=== PATIENT | male | born 1975 ===

== ENCOUNTER 2018-06-10 07:27 | Emergency (ER) | payer SELFPAY ==
[~2018-06-10] VITALS: Ht 167.6 cm; Wt 65.8 kg
--- OUTSIDE RECORDS SUMMARY | 2018-06-10 07:32 | XMS REPORT ---
Author ANUEL Farris [facility] eClinicalWorks Address Unknown Phone Unavailable Care Team Providers Care Golf Coach Name Role Phone ANUEL GRULLON Unavailable Allergies No Known Allergies Problems Problem Type Condition Code Onset Dates Condition Status Problem Unspecified disorder of skin and subcutaneous tissue 709.9 Active Medications Medication Code System Code Instructions Start Date End Date Status Dosage Permethrin [facility] [address]-17 5 % Externally August 20, 2015 as directed Results No Known Results Summary Purpose eClinicalWorks Submission
--- OUTSIDE RECORDS SUMMARY | 2018-06-10 07:32 | XMS REPORT ---
Author Author MARIS SPRINGER Organization [facility] Address [address] [place] [address] Care Team Providers Care Car Rental Agent Name Role Phone MARIS SPRINGER Unavailable PROBLEMS Type Condition ICD9-CM Code [id number] Code Onset Dates Condition Status SNOMED Code Problem Unspecified disorder of skin and subcutaneous tissue 709.9 Active [id number] ALLERGIES No Information ENCOUNTERS Encounter Location Date Diagnosis [place] [id number] [address] Jul, Scabies exposure Z20.89 [facility] [address] [address] Jun, Dysuria R30.0 ; Acute cystitis without hematuria N30.00 and Dizziness R42 [facility] [address] [address] Feb, Abrasion of scalp, initial encounter S00.01XA and Concussion without loss of consciousness, initial encounter S06.0X0A [facility] [address] [place], [place] [id number] [place] [address] Jul, Skin disorder L98.9 ; Encounter to establish care Z76.89 and Screening for cholesterol level Z13.220 [place] [address] [address] Jul, [address] [address] August, [place] [address] [address] Oct, [place] [address] [address] Oct, [facility] [address] [id number] [place] [address] Oct, Unspecified disorder of skin and subcutaneous tissue 709.9 [facility] [address] [id number] [place] [address] Jul, [facility] [address] [id number] [place] [address] Jul, [facility] [address] [id number] [place] [address] Oct, [facility] [address] [id number] [place] [address] Oct, [facility] [address] [id number] [place] [address] Oct, [facility] [address] [facility] [id number] [place] [address] Oct, [facility] [address] [facility] [id number] [place] [address] Oct, [facility] [address] [facility] [id number] [place] [address] August, [facility] [address] [facility] [id number] [place] [address] August, [facility] [address] [id number] [place] [address] August, [facility] [address] [id number] [place] [address] August, [facility] [address] [id number] [place] [address] 1551 August, [facility] [address] [facility] [id number] [place] [address] August, [facility] [address] [facility] [id number] [place] [address] August, [facility] [address] [id number] [place] [address] Nov, [facility] [address] [id number] [place] [address]- [address] Sep, [facility] [place] [facility] [address] [id number] [place] [address] 5[address] Apr, [facility] [id number] [place] [address], [place] [address] Mar, [facility] [address] [id number] [place] [address] Mar, [facility] [address] [id number] [place] [address]- [address] Feb, [facility] [address] [id number] [place] [address] 67[address] Feb, [facility] [address] [id number] [place] [address]- [address] Feb, [facility] [address] [id number] [place] [address] Dec, [facility] [address] [id number] [place] [address] 33[address] Oct, [facility] [address] [id number] [place] [address] 6[address] August, [facility] [address] [id number] [address] Mar, [facility] [place] [facility] [address] [id number] [place] [address] 58[address] Mar, [facility] [place] [facility] [address] [id number] [place] [address] 132[address] Jan, [facility] [place] [facility] [address] [id number] [place] [address] 2[address] Jan, [facility] [place] [facility] [address] [id number] [place] [address] Dec, IMMUNIZATIONS No Known Immunizations SOCIAL HISTORY Never Assessed REASON FOR VISIT scabies exposure PLAN OF CARE VITAL SIGNS MEDICATIONS Medication Instructions Dosage Frequency Start Date End Date Duration Status Elimite 5 % Externally once apply to entire body from neck down, leave on x 8 -10 hours, then wash off Jul, 1 dose Active RESULTS No Results PROCEDURES No Known procedures INSTRUCTIONS MEDICATIONS ADMINISTERED No Known Medications MEDICAL (GENERAL) HISTORY Type Description Date Medical History skin disorder
--- OUTSIDE RECORDS SUMMARY | 2018-06-10 07:32 | XMS REPORT | Continuity of Care Document ---
Author Author [facility] Organization [facility] Address Unknown Phone Unavailable Care Team Providers Care Workforce Development Vice President Name Role Phone [facility] Insurance Providers Payer Name Policy Number Subscriber Name Relationship Unknown Bertin Kaufman Advance Directives Directive Response Recorded Date Advance Directives N 12/15/12 3:35pm Problems No Known Problems or Medical conditions. Social History History Response Recorded Date/Time Alcohol Use Denies Use 12/15/12 3:35pm Recreational Drug Use N 12/15/12 3:35pm Allergies, Adverse Reactions, Alerts Allergen Type Severity Reaction Last Updated No Known Drug Allergies 12/15/12 Medications No known medications Response Recorded Date/Time Status not known Unknown Results No Known Relevant Diagnostic Tests, Laboratory Data and/or Discharge Summary. Encounters Encounter Location Date/Time Departed Emergency Room [facility] IS 3:29pm
--- OUTSIDE RECORDS SUMMARY | 2018-06-10 07:32 | XMS REPORT ---
Author Author MAHAMED LOYOLA [facility] IN [facility] Address [address] [place] [address] Care Team Providers Care Industrial Commercial Groundskeeper Name Role Phone MAHAMED LOYOLA Unavailable PROBLEMS Type Condition ICD9-CM Code PHI54-RS Code Onset Dates Condition Status SNOMED Code Problem Unspecified disorder of skin and subcutaneous tissue 709.9 Active [id number] ALLERGIES No Known Allergies ENCOUNTERS Encounter Location Date Diagnosis [place] [address] [address] Sep, [place] [address] [address] Jul, Scabies exposure Z20.89 [facility] IN [facility] [address] [address] Jun, Dysuria R30.0 ; Acute cystitis without hematuria N30.00 and Dizziness R42 [facility] IN [facility] [address] [address] Feb, Abrasion of scalp, initial encounter S00.01XA and Concussion without loss of consciousness, initial encounter S06.0X0A [place] [address] [address] [place] [id number] [place] [address] Jul, Skin disorder L98.9 ; Encounter to establish care Z76.89 and Screening for cholesterol level Z13.220 [place] [address] [address] Jul, [place] [address] [address] August, [place] [address] [address] Oct, [facility] [address] [id number] [place] [address] Oct, [facility] [address] [id number] [place] [address] Oct, Unspecified disorder of skin and subcutaneous tissue 709.9 [facility] [address] [id number] [place] [address] Jul, [facility] [address] [id number] [place] [address] 3[address] Jul, [facility] [address] [id number] [place] [address]- 3548 Oct, [facility] [address] [id number] [place] [address] Oct, [facility] [address] [id number] [place] [address] Oct, [facility] [address] [id number] [place] [address] Oct, [facility] [address] [id number] [place] [address]- 3990 Oct, [facility] [address] [facility] [id number] [place] [address] August, [facility] [address] [id number] [place] [address] August, [facility] [address] [id number] [place] [address] August, [facility] [address] [id number] [place] [address]- 7[address] August, [facility] [address] [id number] [place] [address]- 0[address] August, [facility] [address] [id number] [place] [address]- 2055 August, [facility] [address] [id number] [place] [address]- 2546 August, [facility] [address] [id number] [place] [address]- 99[address] Nov, [facility] [address] [id number] [place] [address]- 2546 Sep, [facility] [address] [id number] [place] [address]- [address] Apr, [facility] [address] [id number] [place] [address]- [address] Mar, [facility] [address] [id number] [place] [address]- 6[address] Mar, [facility] [address] [id number] [place] [address] 24[address] Feb, [facility] [address] [id number] [place] [address] 92[address] Feb, [facility] [address] [id number] [place] [address]- 8[address] Feb, [facility] [address] [id number] [place] [address]- 135[address] Dec, [facility] [address] [id number] [place] [address]- 2543 Oct, [facility] [address] [id number], [place] [address] August, [facility] [address] [id number] [place] [address]- [address] Mar, [facility] [place] [facility] [address] [id number] [place] [address]- 2546 Mar, [facility] [address] [id number] [place] [address]- 2546 Jan, [facility] [address] [id number] [place] [address]- [address] Jan, [facility] [address] [facility] [id number] [place] [address]- [address] Dec, IMMUNIZATIONS No Known Immunizations SOCIAL HISTORY Never Assessed REASON FOR VISIT Cut on head--tcuppettRN, door slammed shut and hit patients head 30 minutes ago PLAN OF CARE Activity Details Follow Up prn Reason: VITAL SIGNS Height 68 in 2017-02-23 Weight 177.8 lbs 2017-02-23 Temperature 97.4 degrees Fahrenheit 2017-02-23 Heart Rate 70 bpm 2017-02-23 Respiratory Rate 18 2017-02-23 BMI 27.03 kg/m2 2017-02-23 Blood pressure systolic 122 mmHg 2017-02-23 Blood pressure diastolic 78 mmHg 2017-02-23 MEDICATIONS Medication Instructions Dosage Frequency Start Date End Date Duration Status Minocycline HCl 100 MG Orally Once a day 1 tablet 24h 30 Active RESULTS No Results PROCEDURES No Known procedures INSTRUCTIONS MEDICATIONS ADMINISTERED No Known Medications MEDICAL (GENERAL) HISTORY Type Description Date Medical History skin disorder
--- OUTSIDE RECORDS SUMMARY | 2018-06-10 07:32 | XMS REPORT ---
Author Author SUZETTE LCEMENTS [facility] Address [address] [place] [address] Care Team Providers Care Belt Loop Cutter Name Role Phone SUZETTE CLEMENTS Unavailable PROBLEMS Type Condition ICD9-CM Code [id number] Code Onset Dates Condition Status SNOMED Code Problem Unspecified disorder of skin and subcutaneous tissue 709.9 Active [id number] ALLERGIES No Known Allergies ENCOUNTERS Encounter Location Date Diagnosis [facility] [address] [address] Jul, Scabies exposure Z20.89 [facility] [address] [address] Jun, Dysuria R30.0 ; Acute cystitis without hematuria N30.00 and Dizziness R42 [facility] IN [facility] [address] [address] Feb, Abrasion of scalp, initial encounter S00.01XA and Concussion without loss of consciousness, initial encounter S06.0X0A [place] [address] [address] Jul, Skin disorder L98.9 ; Encounter to establish care Z76.89 and Screening for cholesterol level Z13.220 [place] [address] [address] Jul, [place] [address] [address] August, [place] [address] [address] Oct, [place] [address] [address] Oct, [facility] [address] [id number] [place] [address]- [address] Oct, Unspecified disorder of skin and subcutaneous tissue 709.9 [facility] [address] [id number] [place] [address]- [address] Jul, [facility] [address] [id number] [place] [address] 69[address] Jul, [facility] [address] [id number] [place] [address]- 95[address] Oct, [facility] [address] [id number] [place] [address]- 85[address] Oct, [facility] [address] [id number] [place] [address]- 244[address] Oct, [facility] [address] [id number] [place] [address]- 9[address] Oct, [facility] [address] [id number] [place] [address]- [address] Oct, [facility] [address] [id number] [place] [address]- 15[address] August, [facility] [address] [facility] [id number] [place] [address]- [address] August, [facility] [address] [id number] [place] [address]- 6[address] August, [facility] [address] [id number] [place] [address]- 6169 August, [facility] [address] [id number] [place] [address] August, [facility] [address] [id number] [place] [address]- 90[address] August, [facility] [address] [id number] [place] [address]- 384[address] August, [facility] [place] [facility] [address] [id number] [place] [address]- 2[address] Nov, [facility] [place] [facility] [address] [id number] [place] [address]- 8[address] Sep, [facility] [place] [facility] [address] [id number] [place] [address]- 8[address] Apr, [facility] [place] [facility] [address] [id number] [place] [address]- 58[address] Mar, [facility] [place] [facility] [address] [id number] [place] [address]- 4[address] Mar, [facility] [place] [facility] [address] [id number] [place] [address]- 6[address] Feb, [facility] [place] [facility] [address] [id number] [place] [address]- 0831 Feb, [facility] [place] [facility] [address] [id number], [place] [address]- [address] Feb, [facility] [place] [facility] [address] [id number] [place] [address]- 2627 Dec, [facility] [place] [facility] [address] [id number], [place] [address]- [address] Oct, [facility] [place] [facility] [address] [id number], [place] [address]- 25[address] August, [facility] [place] [facility] [address] [id number], [place] [address]- 7[address] Mar, [facility] [place] [facility] [address] [id number] [place] [address]- 74[address] Mar, [facility] [place] [facility] [address] [id number][place] [address]- 66[address] Jan, [facility] [place] [facility] [address] [id number], [place] [address]- [address] Jan, [facility] [place] [facility] [address] [facility] [id number] [place] [address]- [address] 14 Dec, 2008 IMMUNIZATIONS No Known Immunizations SOCIAL HISTORY Never Assessed REASON FOR VISIT dizziness Pt woke up this morning feeling dizzy and having a burning pain with urination CHANG Novak PLAN OF CARE Activity Details Follow Up prn Reason: VITAL SIGNS Height 68 in 2017-06-30 Weight 181.2 lbs 2017-06-30 Temperature 97.8 degrees Fahrenheit 2017-06-30 Heart Rate 74 bpm 2017-06-30 Respiratory Rate 18 2017-06-30 BMI 27.55 kg/m2 2017-06-30 Blood pressure systolic 132 mmHg 2017-06-30 Blood pressure diastolic 68 mmHg 2017-06-30 MEDICATIONS Medication Instructions Dosage Frequency Start Date End Date Duration Status Bactrim DS 800-160 MG Orally Twice a day 1 tablet 12h 13 Jun, 2017Jun 10 day(s) Active Tamiflu 75 mg 1 capsule by Oral route 1 time per day for 10 day(s) Apr, Not-Taking Permethrin 5 % as directed August, Not-Taking Minocycline HCl 100 MG Orally Once a day 1 tablet 24h 30 Active RESULTS No Results PROCEDURES Procedure Date Ordered Result Body Site URINALYSIS, AUTO, W/O SCOPE June 30, 2017 LAB NOT BILLED BY [facility] June 30, 2017 INSTRUCTIONS MEDICATIONS ADMINISTERED No Known Medications MEDICAL (GENERAL) HISTORY Type Description Date Medical History skin disorder
--- OUTSIDE RECORDS SUMMARY | 2018-06-10 07:32 | XMS REPORT ---
Author Author VERONICA PEDERSON [facility] Address [address] [place] [address] Care Team Providers Care Tire Wrapper Name Role Phone VERONICA PEDERSON Unavailable PROBLEMS Type Condition ICD9-CM Code SCX37-NS Code Onset Dates Condition Status SNOMED Code Problem Unspecified disorder of skin and subcutaneous tissue 709.9 Active [id number] ALLERGIES No Known Allergies ENCOUNTERS Encounter Location Date Diagnosis [facility] [address] [address] Feb, Vertigo R[address] [address] Jul, Scabies exposure Z20.89 [facility] [address] [address] Jun, Dysuria R30.0 ; Acute cystitis without hematuria N30.00 and Dizziness R42 [facility] [address] [address] Feb, Abrasion of scalp, initial encounter S00.01XA and Concussion without loss of consciousness, initial encounter S06.0X0A [facility] [address] [address] Jul, Skin disorder L98.9 ; Encounter to establish care Z76.89 and Screening for cholesterol level Z13.220 [place] [address] [address] Jul, [place] [address] [address] August, [address] [address] Oct, [facility] [address] [id number] [place] [address]- 6[address] Oct, [facility] [address] [id number] [place] [address]- 5408 Oct, Unspecified disorder of skin and subcutaneous tissue 709.9 [facility] [address] [id number] [place] Jul, [facility] [address] [id number] [place] [address]- 0681 Jul, [facility] [address] [id number] [place] [address]- 7153 Oct, [facility] [address] [id number] [place] [address]- 1114 Oct, [facility] [address] [id number] [place] [address]- 8[address] Oct, [facility] [address] [id number] [place] [address]- 0442 Oct, [facility] [address] [id number] [place] [address]- 2[address] Oct, [facility] [address] [facility] [id number] [place] [address]- 2096 August, [facility] [address] [id number] [place] [address]- 8957 August, [facility] [address] [id number] [place] [address]- [address] August, [facility] [place] [facility] [address] [id number] [place] [address]- [address] August, [facility] [address] [id number] [place] [address] August, [facility] [address] [id number] [place] [address]- 80[address] August, [facility] [address] [id number] [place] [address]- 7308 August, [facility] [place] [facility] [address] [id number] [place] [address]- 3[address] Nov, [facility] [place] [facility] [address] [id number] [place] [address]- 7903 Sep, [facility] [place] [facility] [address] [id number] [place] [address]- 0380 Apr, [facility] [place] [facility] [address] [id number] [place] [address]- 6508 Mar, [facility] [place] [facility] [address] [id number] [place] [address]- 4483 Mar, [facility] [place] [facility] [address] [id number] [place] [address]- 8876 Feb, [facility] [place] [facility] [address] [id number] [place] [address]- 1698 Feb, [facility] [place] [facility] [address] [id number] [place] [address]- 0339 Feb, [facility] [place] [facility] [address] [facility] [id number] [place] [address]- 385[address] Dec, [facility] [place] [facility] [address] [id number], [place] [address] Oct, [facility] [place] [facility] [address] [id number], [place] [address] August, [facility] [place] [facility] [address] [id number] [place] [address] Mar, [facility] [place] [facility] [address] [id number], [place] [address] Mar, [facility] [place] [facility] [address] [id number], [place] [address] Jan, [facility] [place] [facility] [address] [facility] [id number] [place] [address] Jan, [facility] [address] [facility] [id number] [place] [address] Dec, IMMUNIZATIONS No Known Immunizations SOCIAL HISTORY Never Assessed REASON FOR VISIT Dizziness started today- has happened twice JStrasserRN PLAN OF CARE Activity Details Follow Up prn Reason: VITAL SIGNS Height 68 in 2018-03-08 Weight 180.2 lbs 2018-03-08 Temperature 98.1 degrees Fahrenheit 2018-03-08 Heart Rate 66 bpm 2018-03-08 Respiratory Rate 20 2018-03-08 BMI 27.40 kg/m2 2018-03-08 Blood pressure systolic 104 mmHg 2018-03-08 Blood pressure diastolic 68 mmHg 2018-03-08 MEDICATIONS No Known Medications RESULTS No Results PROCEDURES No Known procedures INSTRUCTIONS MEDICATIONS ADMINISTERED No Known Medications MEDICAL (GENERAL) HISTORY Type Description Date Medical History skin disorder Surgical History No know Surgical history
[2018-06-10] MEDS ORDERED: LIDOCAINE 1% INJ 20 ML 20 ML VIAL ONE (08:01)
--- NOTE | 2018-06-10 08:01 | ED Fall/Injury ---
General Chief Complaint: Laceration Stated Complaint: HEAD LACERATION Nursing Triage Note: PT AMBULATED TO ROOM6 PT CO OF FALL AND HIT BACK OF HEAD, DENIES LOC OR NECK PAIN Source: patient, family Exam Limitations: no limitations History of Present Illness Date Seen by Provider: Jun 10, 2018 Time Seen by Provider: 07:56 Initial Comments The patient is a 42-year-old male. He reports that he fell and struck the back of his head this morning while walking to his car from his house. He denies loss of consciousness. He believes that he may have slid on some salt that he had cut down to melt the ice. He suffered a vertically oriented rather superficial laceration in the area of the left occiput Occurred: just prior to arrival, this morning Injuries/Pain Location: head Loss of Consciousness: no loss of consciousness Allergies and Home Medications Allergies Coded Allergies: No Known Drug Allergies (Unverified , 12/15/12) Home Medications No Active Prescriptions or Reported Meds Patient Home Medication List Home Medication List Reviewed: Yes Review of Systems Review of Systems Constitutional: see HPI Ears, Nose, Mouth, Throat: no symptoms reported Respiratory: no symptoms reported Cardiovascular: no symptoms reported Gastrointestinal: no symptoms reported Genitourinary: no symptoms reported Musculoskeletal: no symptoms reported Skin: other (especially about the posterior neck) Psychiatric/Neurological: No Symptoms Reported Past Cvdcxac-[id number]-Qlqyei Hx Patient Social History Alcohol Use: Denies Use Recreational Drug Use: No Smoking Status: Never a Smoker Recent Foreign Travel: No Contact w/Someone Who Travel: No Recent Infectious Disease Expo: No Recent Hopitalizations: No Immunizations Up To Date Tetanus Booster (TDap): Less than 5yrs Past Medical History Surgeries: No Respiratory: No Cardiac: No Neurological: No Physical Exam Vital Signs Vital Signs - First Documented 06/10/18 07:36 Temp 98.7 Pulse 82 Resp 18 B/P (MAP) 132/93 (106) Pulse Ox 100 Capillary Refill : Less Than 3 Seconds Height, Weight, BMI Height: 5'6.00" Weight: 145lbs. oz. [id number]; BMI Method:Stated General Appearance: WD/WN, no apparent distress HEENT: normal ENT inspection Neck: full range of motion Cardiovascular: normal peripheral pulses, regular rate, rhythm, no edema, no gallop, no JVD, no murmur Respiratory: chest non-tender, lungs clear, normal breath sounds, no respiratory distress, no accessory muscle use Vertically oriented rather superficial laceration in the area of the left occiput. This is not full thickness. It is some 7 cm in length. [place] Coma Score Best Eye Response: (4) Open Spontaneously Best Verbal Response: (5) Oriented Best Motor Response: (6) Obeys Commands Procedures/Interventions Wound Location: Scalp Wound Length (cm): 7 Wound's Depth, Shape: superficial Wound Explored: clean Betadine Prep?: Yes Anesthesia: 1% Lidocaine Wound Debrided: minimal Staple Repair: Stapler 35W Number of Sutures: 7 Progress/Results/Core Measures Results/Orders My Orders Orders - MIKEL STEVENSON MD Lidocaine 1% Inj 20 Ml (Xylocaine 1% Inj (06/10/18 08:15) Dipht,Pertuss(Acell),Tet Adult (Boostrix (06/10/18 08:15) Lidocaine 1% Inj 20 Ml (Xylocaine 1% Inj (06/10/18 08:01) Medications Given in ED Current Medications Medications Dose Ordered Sig/Ananya Route Start Time Stop Time Status Last Admin Dose Admin Diphtheria/ Tetanus/Acell Pertussis 0.5 ml ONCE ONCE IM 06/10/18 08:15 06/10/18 08:16 DC 06/10/18 08:17 0.5 ML Lidocaine HCl 20 ml ONCE ONCE INJ 06/10/18 08:15 06/10/18 08:16 DC 06/10/18 08:10 20 ML Vital Signs/I&O 06/10/18 07:36 Temp 98.7 Pulse 82 Resp 18 B/P (MAP) 132/93 (106) Pulse Ox 100 Blood Pressure Mean: 106 Departure Impression Primary Impression: laceration scalp Disposition: 01 HOME, SELF-CARE Condition: Stable/Unchanged Departure-Patient Inst. Decision time for Depature: 08:23 Referrals: [facility] (PCP/Family) Primary Care Physician Patient Instructions: Laceration Repair With [place] (DC) Add. Discharge Instructions: All discharge instructions reviewed with patient and/or family. Voiced understanding. Keep clean and dry. You may shower and use soap lightly. Return in one week for suture removal An ice pack this morning will help reduce bleeding and swelling. You may use Tylenol or ibuprofen for pain. Scripts No Active Prescriptions or Reported Meds MIKEL STEVENSON MD Jun 10, 2018 08:01
[2018-06-10] MEDS ORDERED: TETANUS,DIPTH,PERTUSS P/F (BOOSTRIX) 0.5 ML VIAL IM ONE (08:15)
[2018-06-10] MEDS ORDERED: LIDOCAINE 1% INJ 20 ML 20 ML VIAL INJ ONE (08:15)
--- NOTE | 2018-06-10 08:35 | NUR ---
7 jose to head
[2018-06-10 08:43] VITALS: BP 132/93
== END 2018-06-10 08:46 | disposition home or self-care (01) ==
LOC: EDUNIT# 07:27 → ER 07:29
DX: S01.01XA Laceration without foreign body of scalp, initial encounter (principal); R40.2142 Coma scale, eyes open, spontaneous, at arrival to emergency department; R40.2252 Coma scale, best verbal response, oriented, at arrival to emergency department; R40.2362 Coma scale, best motor response, obeys commands, at arrival to emergency department; Z23 Encounter for immunization; W22.09XA Striking against other stationary object, initial encounter
CPT/HCPCS: 90471; 90715